=== PATIENT | male | born 1955 | race Caucasian/White ===

== ENCOUNTER 2021-03-13 13:50 | Emergency (ER) | payer BC, SELFPAY ==
[2021-03-13 14:05] VITALS: BP 176/85; PULSE 105; RESP 16; TEMP 37.9; O2SAT 100
--- NOTE | 2021-03-13 14:31 | ED.EXTPRO ---
HPI - Extremity Problem General Chief complaint: Extremity Problem,Nontraumatic Stated complaint: rt foot pain Source: patient and RN notes reviewed Limitations: no limitations History of Present Illness HPI Narrative: The patient-a smoker/nondrinker with who has a history of CLL/polycythemia on few meds- presents with right foot swelling. 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 In the last several days he has developed gradual onset, diffuse foot discomfort, redness, edema which seems to have centered on the distal fibular tip initially. No known injury, cut/bite/jellyfish sting, posterior/calf pain, CP, S OB; symptoms are mild to moderate, worse with activity, better with rest or elevation. He has had associated chills, and temp now is 100.2. Patient advised he may have an infection and he declines hospital referral or available parenteral /IM meds. He comments he is due for routine blood test tomorrow, and will call his doctor. Related Data Home Medications Medication Instructions Recorded Confirmed sildenafil 100 mg tablet 100 mg PO DAILY PRN 09/03/19 02/09/21 tramadol mg 03/13/21 Allergies Allergy/AdvReac Type Severity Reaction Status Date / Time Sulfa (Sulfonamide Allergy Unknown Verified 03/13/21 14:17 Antibiotics) Review of Systems Review of Systems: Narrative: The patient has been informed that they may have pre-hypertension or Hypertension based on a BP reading in the department. I recommend that the patient call the primary care provider listed on their discharge instructions or a physician of their choice this week to arrange follow up for further evaluation of possible pre-hypertension or Hypertension General/Constitutional: No weight loss, POSSIBLE fever Eyes: N0: Redness,discharge Ears/Nose/Throat: No: Epistaxis,ear discharge Respiratory: Denies: Hemoptysis Gastrointestinal: No Vomiting, Bleeding-rectal Skin: No Lumps, POSSIBLE eruption Neurologic: No Focal Weakness,Sz Hematologic: Denies: Petechiae/Purpura Psychiatric: No: Suicida ideationl All Other Systems: Reviewed and Negative [facility] Social History Social History Smoking packs per day: 1.5 Smoking cigarettes per day: 30.0 Years smoked: 40 Smoking pack-years: 60.00 Smoking status: Current every day smoker Tobacco type: cigarettes Alcohol intake: never Spiritual care concerns: No Comments At time of signature, agree with nursing past medical, surgical, social and family history. There is no relevant family history pertinent to the presenting complaint Exam Narrative: Exam Narrative: General Appearance: Well appearing, Well nourished,, Conjunctiva clear Mouth/Throat: Normal appearing, Normal lips, Supple Respiratory: Airway patent, No respiratory distress Skin: Warm, Dry; mild diffuse edema and redness in a stocking distribution of the right foot MS-ankle: Normal strength (mostly intact, limited flexion/extension by pain), Tenderness (diffusely, with mild decreased ROM), Swelling (mild diffuse), Other (no anterior drawer, no collateral laxity, no Achilles tenderness, no fifth MT tenderness) Neurological: A&O x3, Speech clear, CN II-XII intact Psychiatric: Normal mood, Normal affect Course Vital Signs Vital signs: Vital Signs Temperature 100.2 F H 03/13/21 14:05 Pulse Rate 105 H 03/13/21 14:05 Respiratory Rate 16 03/13/21 14:05 Blood Pressure 176/85 H 03/13/21 14:05 Pulse Oximetry 100 03/13/21 14:05 Temperature 100.2 F H 03/13/21 14:05 Pulse Rate 105 H 03/13/21 14:05 Respiratory Rate 16 03/13/21 14:05 Blood Pressure 176/85 H 03/13/21 14:05 Pulse Oximetry 100 03/13/21 14:05 Discharge Plan Discharge Clinical Impression: Cellulitis Qualifiers: Site of cellulitis: extremity Site of cellulitis of extremity: lower extremity Laterality: right Qualified Code(s): L03.115 - Cellulitis of right lower limb Patient Disposition:
== END 2021-03-13 14:42 | disposition home or self-care (01) ==
PROVIDERS: Emergency Provider Emergency Medicine; PCP Internal Medicine
DX: L03.115 Cellulitis of right lower limb (principal); F17.210 Nicotine dependence, cigarettes, uncomplicated
CPT/HCPCS: 99203; G0463